=== PATIENT | female | born 1970 | race Caucasian/White ===

== ENCOUNTER 2020-10-10 23:37 | Emergency (ER) | payer OTHER ==
[~2020-10-10] VITALS: Ht 167.7 cm; Wt 77.1 kg
--- NOTE | 2020-10-10 23:58 | ED Chest Pain ---
General Stated Complaint: DIZZNESS;INDIGESTION Source: patient Exam Limitations: no limitations History of Present Illness Date Seen by Provider: Oct 10, 2020 Time Seen by Provider: 23:49 Initial Comments 50-year-old female with past medical history of tobacco use coming in due to chest pain. She says it is been happening for the past couple weeks, but has been constant since 7 PM today. She points to the center of her chest and says it is like a squeezing pain. Sometimes it radiates through to her back. Denies any weakness or numbness associated with this. Also is not having any fever, cough, shortness of breath, abdominal pain, nausea, vomiting, diarrhea, dysuria, or any other concerns. She first noticed the pain after eating fried potatoes for dinner. Denies any history of gallstones that she knows of or pancreatitis. Drinks about 1 glass of alcohol a day. Denies any personal cardiac history or personal history of blood clots. Has not had any recent surgeries. She said her calf cramped up earlier today, but is not hurting right now. Allergies and Home Medications Allergies Coded Allergies: No Known Drug Allergies (Unverified , 10/10/20) Patient Home Medication List Home Medication List Reviewed: Yes Review of Systems Review of Systems Constitutional: No chills, No fever EENTM: No Blurred Vision Respiratory: Denies Cough, Denies Shortness of Air Cardiovascular: Chest Pain Gastrointestinal: Abdomen Distended; Denies Abdominal Pain, Denies Diarrhea, Denies Nausea, Denies Vomiting Genitourinary: Denies Burning Musculoskeletal: No joint pain Skin: No rash Psychiatric/Neurological: Anxiety Endocrine: No Symptoms Reported Hematologic/Lymphatic: No Symptoms Reported All Other Systems Reviewed Negative Unless Noted: Yes Past Ongwing-Lhjnrh-Xiddvg Hx Patient Social History Tobacco Use?: Yes Substance use?: No Alcohol Use?: Yes Physical Exam Vital Signs Vital Signs - First Documented 10/10/20 23:40 Temp 36.5 Pulse 75 Resp 20 B/P (MAP) 143/86 (105) Pulse Ox 100 O2 Delivery Room Air Capillary Refill : Height, Weight, BMI Height: '" Weight: lbs. oz. kg; BMI Method: General Appearance: No Apparent Distress, WD/WN HEENT: PERRL/EOMI, Normal ENT Inspection, Pharynx Normal Neck: Full Range of Motion, Normal Inspection, Non Tender, Supple Respiratory: Chest Non Tender, Lungs Clear, Normal Breath Sounds, No Accessory Muscle Use, No Respiratory Distress Cardiovascular: Regular Rate, Rhythm, No Edema, Normal Peripheral Pulses, Other (Normal distal pulses) Gastrointestinal: Normal Bowel Sounds, Non Tender, Soft; No Distended, No Guarding Extremity: Normal Capillary Refill, Normal Inspection, Normal Range of Motion, Non Tender, No Calf Tenderness, No Pedal Edema Neurologic/Psychiatric: Alert, No Motor/Sensory Deficits, Normal Mood/Affect Skin: Normal Color, Warm/Dry Lymphatic: No Adenopathy Progress/Results/Core Measures Results/Orders Lab Results Laboratory Tests Test 10/11/20 00:05 Range/Units White Blood Count 11.8 H 4.3-11.0 10^3/uL Red Blood Count 4.73 3.80-5.11 10^6/uL Hemoglobin 15.6 11.5-16.0 g/dL Hematocrit 44 35-52 % Mean Corpuscular Volume 94 80-99 fL Mean Corpuscular Hemoglobin 33 25-34 pg Mean Corpuscular Hemoglobin Concent 35 32-36 g/dL Red Cell Distribution Width 12.0 10.0-14.5 % Platelet Count 312 130-400 10^3/uL Mean Platelet Volume 9.1 9.0-12.2 fL Immature Granulocyte % (Auto) 0 % Neutrophils (%) (Auto) 49 42-75 % Lymphocytes (%) (Auto) 40 12-44 % Monocytes (%) (Auto) 9 0-12 % Eosinophils (%) (Auto) 2 0-10 % Basophils (%) (Auto) 1 0-10 % Neutrophils # (Auto) 5.7 1.8-7.8 X 10^3 Lymphocytes # (Auto) 4.7 H 1.0-4.0 X 10^3 Monocytes # (Auto) 1.0 0.0-1.0 X 10^3 Eosinophils # (Auto) 0.3 0.0-0.3 10^3/uL Basophils # (Auto) 0.1 0.0-0.1 10^3/uL Immature Granulocyte # (Auto) 0.0 0.0-0.1 10^3/uL D-Dimer 0.22 0.00-0.49 UG/ML Sodium Level 140 135-145 MMOL/L Potassium Level 4.0 3.6-5.0 MMOL/L Chloride Level 104 98-107 MMOL/L Carbon Dioxide Level 25 21-32 MMOL/L Anion Gap 11 5-14 MMOL/L Blood Urea Nitrogen 13 7-18 MG/DL Creatinine 0.80 0.60-1.30 MG/DL Estimat Glomerular Filtration Rate 76 BUN/Creatinine Ratio 16 Glucose Level 111 H 70-105 MG/DL Calcium Level 9.6 8.5-10.1 MG/DL Corrected Calcium 9.6 8.5-10.1 MG/DL Total Bilirubin 0.2 0.1-1.0 MG/DL Aspartate Amino Transf (AST/SGOT) 15 5-34 U/L Alanine Aminotransferase (ALT/SGPT) 14 0-55 U/L Alkaline Phosphatase 101 40-136 U/L Troponin I < 0.30 <0.30 NG/ML Total Protein 6.8 6.4-8.2 GM/DL Albumin 4.0 3.2-4.5 GM/DL Lipase 49 8-78 U/L My Orders Orders - NELA LEONARDO MD Cbc With Automated Diff (10/10/20 23:59) Chest 1 View Ap/Pa Only (10/10/20 23:59) Ekg Tracing (10/10/20 23:59) Comprehensive Metabolic Panel (10/10/20 23:59) O2 (10/10/20 23:59) Monitor-Rhythm Ecg Trace Only (10/10/20 23:59) Ed Iv/Invasive Line Start (10/10/20 23:59) Lipase (10/10/20 23:59) Troponin I Fs (10/10/20 23:59) Antacid Suspension (Mylanta Suspension (10/11/20 00:00) Aspirin Chewable Tablet (Baby Aspirin Ch (10/11/20 00:00) Fibrin Degradation Products (10/11/20 00:10) Medications Given in ED Current Medications Medications Dose Ordered Sig/Homero Route Start Time Stop Time Status Last Admin Dose Admin Al Hydrox/Mg Hydrox/Simethicone 30 ml ONCE ONCE PO 10/11/20 00:00 10/11/20 00:02 DC 10/11/20 00:21 30 ML Aspirin 324 mg ONCE ONCE PO 10/11/20 00:00 10/11/20 00:02 DC 10/11/20 00:20 324 MG Vital Signs/I&O 10/10/20 10/10/20 23:40 23:45 Temp 36.5 Pulse 75 Resp 20 B/P (MAP) 143/86 (105) Pulse Ox 100 O2 Delivery Room Air Room Air Progress Progress Note : Progress Note 50-year-old female with above history coming in due to chest pain. ABCs were intact and vitals were stable on presentation. Physical exam reassuring with no focal abnormalities. She does states she had a cramp in her calf earlier, but she does not have any signs or symptoms of DVT on my exam. EKG ordered and interpreted by me showing normal sinus rhythm, narrow QRS, normal axis, no significant ST changes or T wave abnormalities, baseline wander present making it slightly more difficult to interpret. Basic labs including cardiac markers and D-dimer ordered. Dimer specifically ordered due to the leg cramps which potentially could be a sign of a DVT, and otherwise she is lower risk for a pulmonary embolism via Bell score. Heart score is 2 and story is not very classic for ACS. Given the chest pain however, she was given aspirin. Given Maalox as well to see if that helps. Chest x-ray negative on my interpretation for any pneumonia or pneumothorax. Her cardiac s ilhouette and aorta appear normal as well. Her troponin is negative, and given she has had constant, unrelenting pain for over 5 hours this is a pretty reliable indicator that she is actively having a heart attack. D-dimer is negative as well and I believe it is very unlikely she has a PE. Given the story of this starting after the fried potatoes, I believe very possible this is GI related. She also said the Maalox did help, and also that laying backwards seems to make it worse and sitting up seems to be slightly better. I do believe she is stable for discharge. She was sent home with strict return precautions. She should follow-up with her PCP in a couple of days. I recommended she see a chief of vital statistics for potential stress testing as well in the next couple of days if able. Initial ECG Impression Date: Oct 10, 2020 Initial ECG Impression Time: 23:45 Initial ECG Rate: 67 Initial ECG Rhythm: Normal Sinus Comment Narrow QRS, normal axis, no significant ST changes or T wave abnormalities, baseline wander Departure Impression Primary Impression: Chest pain Qualified Codes: R07.9 - Chest pain, unspecified Disposition: 01 HOME, SELF-CARE Condition: Stable Departure-Patient Inst. Decision time for Depature: 00:45 Referrals: NO,LOCAL PHYSICIAN (PCP) Primary Care Physician Patient Instructions: Chest Pain (DC) Add. Discharge Instructions: You were seen in the emergency department for chest pain. Your work-up was largely unrevealing, and it does not appear like you are actively having a heart attack or have a blood clot in your lungs. This could be related to indigestion from the fried potatoes. You can try taking Maalox for pain. Please call your primary care doctor in the next day, they may want to schedule you with a chief of vital statistics to potentially have further testing such as a stress test done. NELA LEONARDO MD Oct 10, 2020 23:58
[2020-10-11] MEDS ORDERED: ANTACID SUSP 30 ML UDC (MYLANTA) PO ONE
[2020-10-11] MEDS ORDERED: ASPIRIN 81 MG CHEW (CHILDREN'S ASA) PO ONE
[2020-10-11 00:18] LABS: BASOPHILS # (AUTO) 0.1 10^3/uL (0.0-0.1); BASOPHILS % (AUTO) 1 % (0-10); EOSINOPHILS # (AUTO) 0.3 10^3/uL (0.0-0.3); EOSINOPHILS % (AUTO) 2 % (0-10); HEMATOCRIT 44 % (35-52); HEMOGLOBIN 15.6 g/dL (11.5-16.0); LYMPHOCYTES # (AUTO) 4.7 X 10^3 (1.0-4.0); LYMPHOCYTES % (AUTO) 40 % (12-44); MEAN CORPUSCULAR HEMOGLOBIN 33 pg (25-34); MEAN CORPUSCULAR HGB CONC 35 g/dL (32-36); MEAN CORPUSCULAR VOLUME 94 fL (80-99); MEAN PLATELET VOLUME 9.1 fL (9.0-12.2); MONOCYTES % (AUTO) 9 % (0-12); NEUTROPHILS # (AUTO) 5.7 X 10^3 (1.8-7.8); NEUTROPHILS % (AUTO) 49 % (42-75); PLATELET COUNT 312 10^3/uL (130-400); WHITE BLOOD COUNT 11.8 10^3/uL (4.3-11.0)
[2020-10-11 00:40] LABS: CREATININE SERUM 0.8 MG/DL (0.60-1.30)
[2020-10-11 00:41] LABS: BILIRUBIN,TOTAL 0.2 MG/DL (0.1-1.0); CALCIUM 9.6 MG/DL (8.5-10.1); TOTAL PROTEIN 6.8 GM/DL (6.4-8.2)
[2020-10-11 01:00] VITALS: BP 133/65
--- NOTE | 2020-10-11 07:22 | Diagnostic Imaging Report ---
INDICATION: Chest pain times today. TECHNIQUE: Single view chest 11:33 PM. CORRELATION STUDY: None FINDINGS: The heart size, mediastinal configuration and pulmonary vascularity are within normal limits. The lungs are clear with no consolidating infiltrate. There is no significant effusion or pneumothorax. Spinal fusion hardware is present. IMPRESSION: 1. Negative for acute abnormality of the chest. Dictated by: Dictated on workstation # [id number]
== END 2020-10-11 01:02 | disposition home or self-care (01) ==
LOC: ER FS 23:42
DX: R07.9 Chest pain, unspecified (principal)
CPT/HCPCS: 36415; 71045; 80053; 83690; 84484; 85025; 85379; 93005; 93041

== ENCOUNTER 2022-03-23 15:35 | Observation (INO) | payer OTHER ==
[~2022-03-23] VITALS: Ht 170.2 cm; Wt 76.5 kg
[2022-03-23] MEDS ORDERED: ONDANSETRON 4 MG (ZOFRAN) ORAL DISSOLVE TAB PO PRN (16:30)
[2022-03-23] MEDS ORDERED: BISACODYL 10 MG SUPP (DULCOLAX) PR PRN (16:30)
[2022-03-23] MEDS ORDERED: diphenhydrAMINE 25 MG TAB (BENADRYL) PO PRN (16:30)
[2022-03-23] MEDS ORDERED: ANTACID SUSP 30 ML UDC (MYLANTA) PO PRN (16:30)
[2022-03-23] MEDS ORDERED: polyethylene glycoL POWDER 17 GM (MIRALAX) PACK PO PRN (16:30)
[2022-03-23] MEDS ORDERED: MELATONIN 3 MG TABLET PO PRN (16:30)
[2022-03-23] MEDS ORDERED: ENOXAPARIN 40 MG/0.4 ML (LOVENOX) SYR SC SCH (16:30)
[2022-03-23] MEDS ORDERED: ONDANSETRON 4 MG/2 ML (SDV) Z0FRAN IV PRN (16:30)
[2022-03-23] MEDS ORDERED: diphenhydrAMINE 50 MG/ML INJ (BENADRYL) IVP PRN (16:30)
[2022-03-23] MEDS ORDERED: ACETAMINOPHEN 325 MG TABLET PO PRN (16:30)
[2022-03-23 17:00] LABS: BASOPHILS # (AUTO) 0.1 10^3/uL (0.0-0.1); BASOPHILS % (AUTO) 1 % (0-10); EOSINOPHILS # (AUTO) 0.2 10^3/uL (0.0-0.3); EOSINOPHILS % (AUTO) 2 % (0-10); HEMATOCRIT 46 % (35-52); HEMOGLOBIN 16.3 g/dL (11.5-16.0); LYMPHOCYTES # (AUTO) 4.1 10^3/uL (1.0-4.0); LYMPHOCYTES % (AUTO) 40 % (12-44); MEAN CORPUSCULAR HEMOGLOBIN 33 pg (25-34); MEAN CORPUSCULAR HGB CONC 35 g/dL (32-36); MEAN CORPUSCULAR VOLUME 93 fL (80-99); MEAN PLATELET VOLUME 9.5 fL (9.0-12.2); MONOCYTES # (AUTO) 0.7 10^3/uL (0.0-1.0); MONOCYTES % (AUTO) 7 % (0-12); NEUTROPHILS # (AUTO) 5.1 10^3/uL (1.8-7.8); NEUTROPHILS % (AUTO) 50 % (42-75); PLATELET COUNT 258 10^3/uL (130-400); WHITE BLOOD COUNT 10.2 10^3/uL (4.3-11.0)
[2022-03-23] MEDS ORDERED: methylPREDNISolone 125 MG (Solu-MEDROL) VIAL IM NR (17:00)
[2022-03-23 17:10] LABS: ALBUMIN 4.1 GM/DL (3.2-4.5); POTASSIUM 3.8 MMOL/L (3.6-5.0)
[2022-03-23 17:11] LABS: CALCIUM 9.4 MG/DL (8.5-10.1)
[2022-03-23 17:13] LABS: TOTAL PROTEIN 7.1 GM/DL (6.4-8.2)
[2022-03-23 17:14] LABS: BILIRUBIN,TOTAL 0.4 MG/DL (0.1-1.0)
[2022-03-23] MEDS: HYDROmorphone 2 MG/ML VIAL (DILAUDID) IV PRN ×2 (17:14→20:56)
[2022-03-23 17:16] LABS: CREATININE SERUM 0.83 MG/DL (0.60-1.30)
--- NOTE | 2022-03-23 17:21 | Diagnostic Imaging Report ---
INDICATION: Neck pain. COMPARISON: No priors. FINDINGS: Frontal and lateral cervical radiographs performed. C5-C6 anterior and interbody fusion has been performed showing no evidence for complication. This appears solid. Above the fusion, there is degenerative disc space narrowing, endplate sclerosis, osteophytes, and trace grade 1 1-2 mm retrolisthesis of C4 on C5. Remaining disc spaces are maintained. No fracture. The prevertebral space is normal. IMPRESSION: Solid-appearing lower cervical fusion, there is junctional spondylosis and grade 1 degenerative retrolisthesis on a chronic basis above the fusion at C4-C5. Dictated by: Dictated on workstation # [id number]
[2022-03-23 17:23] LABS: ERYTHROCYTE SEDIMENTATION RATE 3 MM/HR (0-30)
[2022-03-23] MEDS ORDERED: methylPREDNISolone 125 MG (Solu-MEDROL) VIAL IV NR (18:30)
--- NOTE | 2022-03-23 19:16 | Diagnostic Imaging Report ---
INDICATION: 51-year-old female, pain in neck that radiates to the right shoulder, pain across back between shoulder blades. TECHNIQUE: Multiplanar and multisequence noncontrast MR imaging was performed of the thoracic spine. COMPARISON: None FINDINGS: Thoracic spinal alignment is relatively anatomic. Thoracic vertebral body heights are maintained apart from a few small areas of Schmorl's node deformities. No geographic lesion or edema. The intervertebral disc spaces overall are fairly well maintained. No suggestion for significant thoracic spinal canal stenosis or compromise. The neural foramina demonstrate normal fatty signal intensity without evidence for stenosis. Thoracic spinal cord is of normal caliber and signal intensity. IMPRESSION: Unremarkable MRI thoracic spine. Dictated by: Dictated on workstation # [id number]
--- NOTE | 2022-03-23 19:22 | Diagnostic Imaging Report ---
PROCEDURE: MR imaging cervical spine without contrast. TECHNIQUE: Multiplanar, multisequence MR imaging of the cervical spine was performed without contrast. INDICATION: Injury with neck pain. COMPARISON: Limited to radiographs performed earlier. FINDINGS: A C5-C6 anterior and interbody fusion appears solid and incorporated. Above the fusion at C4-C5 there is degenerative disc space narrowing, disc stature loss, endplate sclerosis, osteophytes and slight 1 to 2 mm degenerative retrolisthesis. The remaining levels are aligned normally and there is no marrow edema. No contusion or fracture pattern. There is no findings of ligamentous injury. Cervical spinal cord, itself, has a normal volume, morphology and signal intensity. At C4-C5 osteophyte disc material results in moderate to severe right and [id number] left foraminal narrowing. At the levels of fusion no stenosis. Below the fusion at C6-C7 there is disc protrusion, asymmetric, greater right, resulting in a moderate degree of right foraminal stenosis and mild central canal narrowing. IMPRESSION: 1. Normal spinal cord. No acute or posttraumatic bony abnormality. 2. Solid appearing lower cervical fusion. 3. Junctional degenerative changes above the fusion. There is grade 1 retrolisthesis of C4 on C5 and below the fusion there is disc protrusion asymmetric to the right. There is resultant multilevel foraminal stenoses detailed level by level above. 4. No acute appearing abnormality. No hemorrhage. Dictated by: Dictated on workstation # [id number]
[2022-03-23] MEDS ORDERED: RT-ALBUTEROL SULF 2.5 MG/3 ML PRE-MIX VIAL INH PRN (20:00)
[2022-03-23 20:12] VITALS: BP 131/73
[2022-03-23] MEDS: DOCUSATE SODIUM 100 MG (COLACE) CAP PO SCH (20:56)
[2022-03-23 23:40] VITALS: BP 131/66
[2022-03-23 23:55] LABS: BILIRUBIN,URINE NEGATIVE (NEGATIVE); CLARITY,URINE CLEAR; COLOR,URINE YELLOW; GLUCOSE, URINE (UA) NEGATIVE (NEGATIVE); KETONES,URINE NEGATIVE (NEGATIVE); LEUKOCYTE ESTERASE ,URINE NEGATIVE (NEGATIVE); NITRITE,URINE NEGATIVE (NEGATIVE); PROTEIN,URINE NEGATIVE (NEGATIVE)
[2022-03-23] MEDS: methylPREDNISolone 40 MG/ML (Solu-MEDROL) VIAL IV SCH (23:55)
[2022-03-24 00:10] LABS: BACTERIA,URINE NEGATIVE /HPF; RBC,URINE 0-2 /HPF
[2022-03-24 03:33] VITALS: BP 132/61
[2022-03-24] MEDS: methylPREDNISolone 40 MG/ML (Solu-MEDROL) VIAL IV SCH ×2 (05:14→11:18)
[2022-03-24] MEDS: HYDROmorphone 2 MG/ML VIAL (DILAUDID) IV PRN ×2 (05:20→11:24)
[2022-03-24 05:54] LABS: BASOPHILS % (AUTO) 0 % (0-10); EOSINOPHILS % (AUTO) 0 % (0-10); HEMATOCRIT 45 % (35-52); HEMOGLOBIN 15.7 g/dL (11.5-16.0); LYMPHOCYTES # (AUTO) 1.5 10^3/uL (1.0-4.0); LYMPHOCYTES % (AUTO) 18 % (12-44); MEAN CORPUSCULAR HEMOGLOBIN 32 pg (25-34); MEAN CORPUSCULAR HGB CONC 35 g/dL (32-36); MEAN CORPUSCULAR VOLUME 92 fL (80-99); MEAN PLATELET VOLUME 9.9 fL (9.0-12.2); MONOCYTES # (AUTO) 0.1 10^3/uL (0.0-1.0); MONOCYTES % (AUTO) 1 % (0-12); NEUTROPHILS # (AUTO) 6.8 10^3/uL (1.8-7.8); NEUTROPHILS % (AUTO) 81 % (42-75); PLATELET COUNT 260 10^3/uL (130-400); WHITE BLOOD COUNT 8.5 10^3/uL (4.3-11.0)
[2022-03-24 06:16] LABS: ALBUMIN 3.8 GM/DL (3.2-4.5); BILIRUBIN,TOTAL 0.4 MG/DL (0.1-1.0); CALCIUM 9.3 MG/DL (8.5-10.1); CREATININE SERUM 0.77 MG/DL (0.60-1.30); TOTAL PROTEIN 6.7 GM/DL (6.4-8.2)
[2022-03-24 07:45] VITALS: BP 126/76
[2022-03-24] MEDS: DOCUSATE SODIUM 100 MG (COLACE) CAP PO SCH (08:13)
[2022-03-24 11:26] VITALS: BP 128/75
[2022-03-24] MEDS ORDERED: OXC5T PO (11:30)
[2022-03-24] MEDS ORDERED: SNN187T PO (11:30)
[2022-03-24] MEDS ORDERED: DOCU100C37 PO (11:30)
[2022-03-24] MEDS ORDERED: DIAZ5TAB49 PO (11:30)
[2022-03-24] MEDS ORDERED: PRED10TA22 PO (11:30)
--- NOTE | 2022-03-24 14:13 | Short Stay Summary ---
BASIAMERY C 03/24/22 1413: History of Present Illness History of Present Illness Reason for visit/HPI Tere Yee is a 51 yo F who was directly admitted to [facility] from clinic with Dr. Odell on 03/23/22 for acute cervical myelopathy. Tere states that she began to have pain in her right scapular region with numbness and tingling radiating down her right arm about 12 days ago after waking from a nap. 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 During this past week, she saw her chiropractor on Sunday and and reports that treatments did not alleviate her symptoms. She proceeded to book an appointment with Dr. Odell on . Upon exam, Tere was found to have restricted hand functioning with pain, numbness, and tingling in the right upper extremity. Due to concerns for infection and continued reduction in RUE mobility, Tere was admitted to the hospital for pain management and imaging. This morning she is sitting on the side of her bed eating breakfast and talking on the telephone. She states that her pain is currently at 1/10 now that she has received medications. Her fingers are still numb, tingling, and have a burning sensation. She has not had a bowel movement since admit but has taken stool softeners. She is conscious to monitor for constipation while on her pain meds. Voiding fine. Eating independently. Has no difficulty ambulating on her own. She slept well last night. She does smoke 1 ppd and has for 40 years. Date of Admission Mar 23, 2022 at 15:42 Date of Discharge 03/24/22 Time Seen by Provider: 08:06 Attending Physician Helene Riojas Aprn Admitting Physician Admitting Physician: Brina Odell DO Attending Physician: Brina Odell DO Consult Allergies and Home Medications Allergies Coded Allergies: No Known Drug Allergies (Unverified , 10/10/20) Patient Home Medication List Home Medication List Reviewed: Yes Diazepam (Diazepam) 5 Mg Tablet, 5 MG PO Q4HR PRN for ANXIETY Prescribed by: BRINA ODELL on 03/24/22 1131 Docusate Sodium (Docusate Sodium) 100 Mg Capsule, 100 MG PO BID Prescribed by: BRINA ODELL on 03/24/22 1130 Oxycodone Hcl (Oxyir Tablet) 5 Mg Tab, 5 MG PO Q6H PRN for PAIN-SEE DOSE INSTRUCTIONS Prescribed by: BRINA ODELL on 03/24/22 1131 Prednisone (Prednisone) 10 Mg Tab.ds.pk, 10 MG PO DAILY Prescribed by: BRINA ODELL on 03/24/22 1130 Sennosides (Senna Lax) 8.6 Mg Tablet, 8.6 MG PO BID Prescribed by: BRINA ODELL on 03/24/22 1130 Past Rmrzzmr-Oaxetb-Dbhkxt Hx Patient Social History Smoking Status: Current Everyday Smoker Cigaretts per day: 20 Have you traveled recently?: No Alcohol Use?: No Pt feels they are or have been: No Surgeries Yes Orthopedic (cervical spinal fusion) Musculoskeletal Chronic Back Pain (disc herniation) Review of Systems Constitutional: No diaphoresis; dizziness (some when sitting or standing too fast); No fever EENTM: No blurred vision, No vision loss, No throat pain Respiratory: No cough, No dyspnea on exertion, No short of breath Cardiovascular: No chest pain, No palpitations Gastrointestinal: No abdominal pain; constipation (no BM during admit but pt will monitor); No dysphagia, No nausea, No vomiting Genitourinary: No hematuria, No incontinence Musculoskeletal: back pain (rihgt scapular region) Psychiatric/Neurological: Numbness, Tingling; Denies Tremors; Other (burning in right fingers) Physical Exam Vital Signs Vital Signs - First Documented 03/23/22 03/23/22 03/23/22 03/23/22 03/23/22 16:00 18:26 19:42 20:12 22:58 Temp 36.6 Pulse 71 Resp 16 B/P (MAP) 131/73 (92) Pulse Ox 94 O2 Delivery Room Air O2 Flow Rate 0.00 FiO2 21 Capillary Refill : Height, Weight, BMI Height: '" Weight: lbs. oz. kg; 26.40 BMI Method: General Appearance: No Apparent Distress, WD/WN Eyes: Bilateral Eye PERRL, Bilateral Eye EOMI HEENT: PERRL/EOMI, Moist Mucous Membranes Neck: Full Range of Motion, Non Tender, Supple Respiratory: Chest Non Tender, Lungs Clear, Normal Breath Sounds, No Accessory Muscle Use, No Respiratory Distress Cardiovascular: Regular Rate, Rhythm, No Murmur, Normal Peripheral Pulses Gastrointestinal: Normal Bowel Sounds, Non Tender, Soft Back: Vertebral Tenderness (in low cervical / upper thoracic regions) Extremity: No Calf Tenderness, No Pedal Edema Neurologic/Psychiatric: Alert, Oriented x3, Sensory Deficit (sensation decreased/altered in RUE dermatomes C5-C8) Skin: Normal Color, Warm/Dry Comments Radiology Reports Date of Exam:03/23/22 MRI CERVICAL SPINE W/O CONTRAS PROCEDURE: MR imaging cervical spine without contrast. TECHNIQUE: Multiplanar, multisequence MR imaging of the cervical spine was performed without contrast. INDICATION: Injury with neck pain. COMPARISON: Limited to radiographs performed earlier. FINDINGS: A C5-C6 anterior and interbody fusion appears solid and incorporated. Above the fusion at C4-C5 there is degenerative disc space narrowing, disc stature loss, endplate sclerosis, osteophytes and slight 1 to 2 mm degenerative retrolisthesis. The remaining levels are aligned normally and there is no marrow edema. No contusion or fracture pattern. There is no findings of ligamentous injury. Cervical spinal cord, itself, has a normal volume, morphology and signal intensity. At C4-C5 osteophyte disc material results in moderate to severe right and gygq-oc-zaejojri left foraminal narrowing. At the levels of fusion no stenosis. Below the fusion at C6-C7 there is disc protrusion, asymmetric, greater right, resulting in a moderate degree of right foraminal stenosis and mild central canal narrowing. IMPRESSION: 1. Normal spinal cord. No acute or posttraumatic bony abnormality. 2. Solid appearing lower cervical fusion. 3. Junctional degenerative changes above the fusion. There is grade 1 retrolisthesis of C4 on C5 and below the fusion there is disc protrusion asymmetric to the right. There is resultant multilevel foraminal stenoses detailed level by level above. 4. No acute appearing abnormality. No hemorrhage. Dictated by: Dictated on workstation # [id number] Dict: 03/23/22 1800 Trans: 03/23/221935 [id number] Interpreted by: RIKI ROMERO Electronically signed by: RIKI ROMERO 03/23/221935 Date of Exam:03/23/22 MRI THORACIC SPINE W/O CON INDICATION: 51-year-old female, pain in neck that radiates to the right shoulder, pain across back between shoulder blades. TECHNIQUE: Multiplanar and multisequence noncontrast MR imaging was performed of the thoracic spine. COMPARISON: None FINDINGS: Thoracic spinal alignment is relatively anatomic. Thoracic vertebral body heights are maintained apart from a few small areas of Schmorl's node deformities. No geographic lesion or edema. The intervertebral disc spaces overall are fairly well maintained. No suggestion for significant thoracic spinal canal stenosis or compromise. The neural foramina demonstrate normal fatty signal intensity without evidence for stenosis. Thoracic spinal cord is of normal caliber and signal intensity. IMPRESSION: Unremarkable MRI thoracic spine. Dictated by: Dictated on workstation # [id number] Dict: 03/23/22 1800 Trans: 03/23/222144 [facility] [id number] Interpreted by: BELINDA CANO DO Electronically signed by: BELINDA CANO DO 03/23/222144 Date of Exam:03/23/22 CERVICAL SPINE 3 VIEWS OR LESS INDICATION: Neck pain. COMPARISON: No priors. FINDINGS: Frontal and lateral cervical radiographs performed. C5-C6 anterior and interbody fusion has been performed showing no evidence for complication. This appears solid. Above the fusion, there is degenerative disc space narrowing, endplate sclerosis, osteophytes, and trace grade 1 1-2 mm retrolisthesis of C4 on C5. Remaining disc spaces are maintained. No fracture. The prevertebral space is normal. IMPRESSION: Solid-appearing lower cervical fusion, there is junctional spondylosis and grade 1 degenerative retrolisthesis on a chronic basis above the fusion at C4-C5. Dictated by: Dictated on workstation # [id number] Dict: 03/23/22 1715 Trans: 03/23/221749 [id number] Interpreted by: RIKI ROMERO Electronically signed by: RIKI ROMERO 03/23/221749 Short Stay Diagnosis Discharge Diagnosis-Short Stay Admission Diagnosis: Right upper extremity pain and decreased mobility of the right hand Final Discharge Diagnosis: Acute Cervical Myelopathy with disc protrusion as seen on MRI Conclusion Labs Laboratory Tests 03/23/22 16:43: White Blood Count 10.2, Red Blood Count 4.99, Hemoglobin 16.3H, Hematocrit 46, Mean Corpuscular Volume 93, Mean Corpuscular Hemoglobin 33, Mean Corpuscular Hemoglobin Concent 35, Red Cell Distribution Width 12.2, Platelet Count 258, Mean Platelet Volume 9.5, Immature Granulocyte % (Auto) 0, Neutrophils (%) (Auto) 50, Lymphocytes (%) (Auto) 40, Monocytes (%) (Auto) 7, Eosinophils (%) (Auto) 2, Basophils (%) (Auto) 1, Neutrophils # (Auto) 5.1, Lymphocytes # (Auto) 4.1H, Monocytes # (Auto) 0.7, Eosinophils # (Auto) 0.2, Basophils # (Auto) 0.1, Immature Granulocyte # (Auto) 0.0, Erythrocyte Sedimentation Rate 3, Sodium Level 141, Potassium Level 3.8, Chloride Level 106, Carbon Dioxide Level 22, Anion Gap 13, Blood Urea Nitrogen 8, Creatinine 0.83, Estimat Glomerular Filtration Rate 85, BUN/Creatinine Ratio 10, Glucose Level 95, Lactic Acid Level 0.89, Calcium Level 9.4, Corrected Calcium 9.3, Total Bilirubin 0.4, Aspartate Amino Transf (AST/SGOT) 13, Alanine Aminotransferase (ALT/SGPT) 20, Alkaline Phosphatase 72, C-Reactive Protein High Sensitivity 0.19, Total Protein 7.1, Albumin 4.1 03/23/22 23:52: Urine Color YELLOW, Urine Clarity CLEAR, Urine pH 6.0, Urine Specific [place] 1.010L, Urine Protein NEGATIVE, Urine Glucose (UA) NEGATIVE, Urine Ketones NEGATIVE, Urine Nitrite NEGATIVE, Urine Bilirubin NEGATIVE, Urine Urobilinogen 0.2, Urine Leukocyte Esterase NEGATIVE, Urine RBC (Auto) 1+H, Urine RBC 0-2, Urine WBC NONE, Urine Crystals NONE, Urine Bacteria NEGATIVE, Urine Casts NONE, Urine Mucus NEGATIVE, Urine Culture Indicated NO 03/24/22 05:12: White Blood Count 8.5, Red Blood Count 4.92, Hemoglobin 15.7, Hematocrit 45, Mean Corpuscular Volume 92, Mean Corpuscular Hemoglobin 32, Mean Corpuscular Hemoglobin Concent 35, Red Cell Distribution Width 11.9, Platelet Count 260, Mean Platelet Volume 9.9, Immature Granulocyte % (Auto) 0, Neutrophils (%) (Auto) 81H, Lymphocytes (%) (Auto) 18, Monocytes (%) (Auto) 1, Eosinophils (%) (Auto) 0, Basophils (%) (Auto) 0, Neutrophils # (Auto) 6.8, Lymphocytes # (Auto) 1.5, Monocytes # (Auto) 0.1, Eosinophils # (Auto) 0.0, Basophils # (Auto) 0.0, Immature Granulocyte # (Auto) 0.0, Sodium Level 138, Potassium Level 4.0, Chloride Level 107, Carbon Dioxide Level 21, Anion Gap 10, Blood Urea Nitrogen 13, Creatinine 0.77, Estimat Glomerular Filtration Rate 93, BUN/Creatinine Ratio 17, Glucose Level 178H, Calcium Level 9.3, Corrected Calcium 9.5, Total Bilirubin 0.4, Aspartate Amino Transf (AST/SGOT) 14, Alanine Aminotransferase (ALT/SGPT) 17, Alkaline Phosphatase 70, Total Protein 6.7, Albumin 3.8 Conclusion/Plan Acute Cervical Myelopathy with disc protrusion as seen on MRI - Discharge home with pain medication - Place referral to Dr. Tejada in [place] ODELLBRINA DO 03/25/22 0828: History of Present Illness History of Present Illness Reason for visit/HPI CC: Acute cervical myelopathy with loss of function right arm at high risk for nerve injury HPI: copied and pasted from my office note yesterday: Pt is a 51 yo F presenting for back pain. Pt states that about 12 days ago she woke up from a nap in the afternoon and thought she had slept on her back and shoulder wrong. She went to the chiropractor a few days later and states that the pain was agonizing. She explains that nothing has been helping except for a hot shower while she is under the water. She has been taking Ibuprofen q6hrs for 12 days. 10 years ago the disc between C4 ad C5 ruptured, and they fused together. She stated that the pain feels a lot like that. She thinks she has maybe slipped another disc. During the day she can manage because she can lie on the floor and stretch/manipulate her body. But at night, the pain is awful. She wakes up at 2:00 AM pretty much every night in pain that makes it hard for her to breathe. She has had a fever off and on. Her fingertips are numb and her arm has been tin gling despite it being cold to the touch. She wore a back brace for a few days, which did help, but not enough. I explained that because she has had a fusion in the past, sometimes areas around the fusion can be more susceptible to problems. Pt has not experienced any fecal or urine incontinence. She is not having leg pain. She states that her BM are not normal though, but she still has control. Pt has been able to work because she stands at a desk most of the day. Physical Exam: I examined and palpated the pt's back. Her right arm is included in the pain but her left arm is normal. Her right leg experienced some pain and weakness about a year ago, but it has not caused her problems recently. She has not had any falls at all. She is no longer weak in that leg. Pt states that she has full ROM of her neck, but she can feel it pulling on the area which is painful. I explained that we can put her in the hospital for observation, and start steroids, pain medication, and a muscle relaxer. We can get her an MRI while she is there. I stated that there is a possibility that her spinal cord is being pinched. I stated that I should be able to get her comfortable enough for her to lie on the MRI table in the morning. It could just be a simple thing or something complex that we find. Pt stated that her deductible is very high, and she is worried about having to pay it. I stated that I truly hate that, but with her arm symptoms and the amount of time that she has had this pain, I think we should treat this as an emergency situation. We would get her out as soon as possible and where she needs to be with a specialist. The pt inquired if there was any possibility that this is surgical. I stated that as of this moment, no, but I think eventually it will have to have some sort of intervention. I do not feel like there is really any other option at this point. I do not think this is a long-term thing by any means, but in order to get the MRI, I need to get her comfortable. Pt is still allergic to morphine. The pt's daughter will be driving her to the hospital today. Scribed by: Koki Blount Date of Admission 03/23/2022 Date of Discharge 03/24/2022 at 1530 Time Seen by Provider: 10:00 Allergies and Home Medications Allergies Coded Allergies: No Known Drug Allergies (Unverified , 10/10/20) Patient Home Medication List Home Medication List Reviewed: Yes Diazepam (Diazepam) 5 Mg Tablet, 5 MG PO Q4HR PRN for ANXIETY Prescribed by: BRINA ODELL on 03/24/22 1131 Docusate Sodium (Docusate Sodium) 100 Mg Capsule, 100 MG PO BID Prescribed by: BRINA ODELL on 03/24/22 1130 Oxycodone Hcl (Oxyir Tablet) 5 Mg Tab, 5 MG PO Q6H PRN for PAIN-SEE DOSE INSTRUCTIONS Prescribed by: BRINA ODELL on 03/24/22 1131 Prednisone (Prednisone) 10 Mg Tab.ds.pk, 10 MG PO DAILY Prescribed by: BRINA ODELL on 03/24/22 1130 Sennosides (Senna Lax) 8.6 Mg Tablet, 8.6 MG PO BID Prescribed by: BRINA ODELL on 03/24/22 1130 Past Jjfussp-Dtqgej-Vmzhoc Hx Patient Social History Marrital Status: cohabiting Employed/Student: employed Smoking Status: Current Everyday Smoker Surgeries Orthopedic (cervical spine C4-C5 2011 ) Review of Systems Constitutional: see HPI Psychiatric/Neurological: Weakness (right arm and hand) Physical Exam General Appearance: Anxious, Mild Distress Respiratory: Chest Non Tender, Lungs Clear, Normal Breath Sounds, No Accessory Muscle Use, No Respiratory Distress Cardiovascular: Regular Rate, Rhythm, No Edema, No Gallop, No JVD, No Murmur, Normal Peripheral Pulses Neurologic/Psychiatric: Motor Weakness (right arm 1/5 strength and right hand 1/5 on initial exam now 4/5) Short Stay Diagnosis Discharge Diagnosis-Short Stay Admission Diagnosis: Acute cervical spine myelopathy with right arm and hand loss of function high risk for permanent paralysis in need of MRI urgently Final Discharge Diagnosis: Acute cervical spine myelopathy with right arm and hand loss of function high risk for permanent paralysis in need of MRI urgently and IV steroids with narcotics and muscle relaxants after assessed in office revealing herniated disc and will require surgical consultation by Dr Tejada next week Conclusion Conclusion/Plan DC home on steroids, pain meds and muscle relaxants MRI clouded to Dr Tejada and he will see patient next week after I conferred with him Supervisory-Addendum Brief Verification & Attestation Participated in pt care: history, MDM, physical Personally performed: exam, history, MDM, supervision of care Care discussed with: Medical Student Procedures: n/a Results interpretation: Verified all documentation Verification and Attestation of Medical Student E/M Service A medical student performed and documented this service in my presence. I reviewed and verified all information documented by the medical student and made modifications to such information, when appropriate. I personally performed the physical exam and medical decision making. Brina Odell, Mar 25, 2022,08:19 MERY FLOR Mar 24, 2022 14:13 BRINA ODELL DO Mar 25, 2022 08:28
== END 2022-03-24 15:30 | disposition home or self-care (01) ==
LOC: 4TH 15:42 → UNDOADMOB 15:42 → 4TH 16:00 → UNDODISOB 03-24 15:30
PROVIDERS: ADMIT Internal Medicine; ATTEND Internal Medicine
DX: M50.021 Cervical disc disorder at C4-C5 level with myelopathy (principal); M48.02 Spinal stenosis, cervical region; F17.200 Nicotine dependence, unspecified, uncomplicated; Z28.310 Unvaccinated for COVID-19
CPT/HCPCS: 36415; 72040; 72141; 72146; 80053; 81000; 83605; 85025; 85652; 86141; 87040; 96372; 96374; 96375; 96376; G0378